=== PATIENT | male | born 1990 | race African-American/Black ===

== ENCOUNTER 2019-10-05 14:22 | Emergency (ER) | payer OTHER ==
[2019-10-05 14:39] VITALS: BP 140/70; PULSE 90; TEMP 98.7; BMI 27.2
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
[2019-10-05] MEDS ORDERED: ACETAMINOPHEN 1000 MG/100 ML VIAL (NON FORMULARY) IVPB ONE (15:02)
[2019-10-05] MEDS ORDERED: ACETAMINOPHEN 325 MG TABLET (FP) ONE (15:11)
[2019-10-05] MEDS: ACETAMINOPHEN 325 MG TABLET (FP) PO ONE ×2 (15:11→15:16)
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
[2019-10-05] MEDS ORDERED: IBUPROFEN 600 MG TABLET (FP) PO ONE (15:45)
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
== END 2019-10-05 18:55 | disposition home or self-care (01) ==
LOC: JER 14:22
DX: Z04.1 Encounter for examination and observation following transport accident (principal); R51 Headache; M54.2 Cervicalgia; M54.5 Low back pain; M25.512 Pain in left shoulder; M25.511 Pain in right shoulder; M25.561 Pain in right knee; V43.54XA Car driver injured in collision with van in traffic accident, initial encounter; Y92.414 Local residential or business street as the place of occurrence of the external cause; W22.11XA Striking against or struck by driver side automobile airbag, initial encounter; Y93.89 Activity, other specified; Y99.8 Other external cause status
CPT/HCPCS: 70450-TC; 71046-TC-FY; 72100-TC-FY; 72125-TC; 73030-TC-LT-FY; 73030-TC-RT-FY; 73562-TC-RT-FY; 99285-25

== ENCOUNTER 2023-09-10 08:03 | Emergency (ER) | payer SELFPAY ==
[2023-09-10 08:30] VITALS: BP 131/73; PULSE 77; RESP 16; TEMP 98.7; BMI 27.2
== END 2023-09-10 08:53 | disposition left against medical advice (07) ==
LOC: JERFT 08:03
DX: R05.9 Cough, unspecified (principal)
CPT/HCPCS: 99281-25

== ENCOUNTER 2024-03-05 02:23 | Emergency (ER) | payer SELFPAY ==
[2024-03-05 02:27] VITALS: BP 134/86; PULSE 60; RESP 18; TEMP 98.6; BMI 35.2
[2024-03-05] MEDS ORDERED: diphenhydrAMINE HCL 12.5 MG/5 ML UNIT-DOSE CUPS ONE (03:02)
[2024-03-05] MEDS: diphenhydrAMINE HCL 12.5 MG/5 ML UNIT-DOSE CUPS PO ONE (03:07)
[2024-03-05] MEDS ORDERED: valACYclovir HCL 500 MG TABLET (FP) ONE (03:29)
[2024-03-05] MEDS ORDERED: IBUPROFEN 600 MG TABLET (FP) PO ONE (03:29)
[2024-03-05] MEDS: IBUPROFEN 600 MG TABLET (FP) PO ONE (03:34)
[2024-03-05] MEDS: FOLIC ACID INJECTION - 1 MG, THIAMINE HCL 100 MG, MULTIVIT INJECTION ADULT 10 ML in SOD... IVPB ONE (03:34)
[2024-03-05] MEDS: valACYclovir HCL 500 MG TABLET (FP) PO ONE (03:34)
== END 2024-03-05 04:23 | disposition home or self-care (01) ==
LOC: JER 02:23
DX: R68.84 Jaw pain (principal); K14.0 Glossitis; B00.89 Other herpesviral infection
CPT/HCPCS: 99283-25